=== PATIENT | female | born 1975 | race Caucasian/White ===

== ENCOUNTER 2017-02-27 18:34 | Emergency (ER) | payer MEDICAID ==
[~2017-02-27] VITALS: Ht 162.6 cm; Wt 86.0 kg
[2017-02-27 19:10] VITALS: BP 130/80
== END 2017-02-27 20:00 | disposition left against medical advice (07) ==
LOC: ER 19:41
DX: Z04.71 Encounter for examination and observation following alleged adult physical abuse (principal); Z53.21 Procedure and treatment not carried out due to patient leaving prior to being seen by health care provider